=== PATIENT | male | born 1970 | race Caucasian/White ===

== ENCOUNTER 2017-11-29 18:04 | Emergency (ER) | payer OTHER ==
[~2017-11-29] VITALS: Ht 180.3 cm; Wt 77.6 kg
[2017-11-29 18:08] VITALS: BP 116/74
--- NOTE | 2017-11-29 18:44 | ED ANIMAL BITE/WOUND CHECK ---
History of Present Illness General Chief Complaint: General Adult Stated Complaint: 2ND RABIES SHOT Source: patient, old records Exam Limitations: no limitations Vital Signs & Intake/Output Vital Signs & Intake/Output Vital Signs Date Time Temp Pulse Resp B/P B/P Pulse O2 O2 Flow FiO2 Mean Ox Delivery Rate 11/29 1808 97.1 66 15 116/74 97 Room Air Room Air Allergies Coded Allergies: No Known Allergies (11/29/17) Triage Note: PT HERE FOR SECOND RABIES SHOT. Triage Nurses Notes Reviewed? yes Onset: Abrupt Duration: better, gone now Timing: recent history Injury Environment: home Is Injury an Animal Bite? No Appearance of Animal: unknown Severity: mild Severity Numbers: 1 HPI: Patient is a 47-year-old male WHO presents for evaluation after a bat was found in her house LAST WEEK,. The bat was captured and released before could be tested. Patient was not bitten. Patient received initial rabies vaccine and immunoglobin 3 days ago patient returns to the emergency room with with requests a second rabies vaccine. Patient denies any symptoms no reaction to the recent menstruation of the shots Past History Travel History Traveled to [place] past 21 day No Medical History Any Pertinent Medical History? 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 No Review of Systems Review of Systems Constitutional: Reports: no symptoms. EENTM: Reports: no symptoms. Respiratory: Reports: no symptoms. Cardiovascular: Reports: no symptoms. GI: Reports: no symptoms. Genitourinary: Reports: no symptoms. Musculoskeletal: Reports: no symptoms. Skin: Reports: no symptoms. Neurological/Psychological: Reports: no symptoms. Hematologic/Endocrine: Reports: no symptoms. Immunologic/Allergic: Reports: no symptoms. All Other Systems: Reviewed and Negative Physical Exam Physical Exam General Appearance: no apparent distress, alert, comfortable Head: atraumatic Eyes: Bilateral: normal appearance. Ears, Nose, Throat: hearing grossly normal Neck: normal inspection Respiratory: normal breath sounds Extremities: normal range of motion Neurologic/Psych: no motor/sensory deficits, awake, alert, oriented x 3 Skin: intact, normal color Progress Differential Diagnosis: cellulitis Plan of Care: No concerns of adverse reaction to the recent vaccines and shots. Patient was strongly advised to follow-up discharged just the plan and he will comply Departure Departure Disposition: HOME OR SELF CARE Condition: Stable Clinical Impression Primary Impression: Exposure to bat without known bite Referrals: Unknown (PCP/Family) Additional Instructions: As discussed return to the emergency room on December 04 and December 11 for your repeat rabies vaccines. If symptoms worsen return to the emergency room Departure Forms: Customer Survey General Discharge Information
== END 2017-11-29 19:10 ==
LOC: ERH 18:04
DX: Z23 Encounter for immunization (principal)
CPT/HCPCS: 90471; 99281

== ENCOUNTER 2017-12-04 09:55 | Emergency (ER) | payer OTHER ==
[~2017-12-04] VITALS: Ht 181.6 cm; Wt 77.6 kg
[2017-12-04 10:00] VITALS: BP 137/66
--- NOTE | 2017-12-04 10:01 | ED GENERAL ADULT ---
History of Present Illness General Chief Complaint: General Adult Stated Complaint: HERE FOR 3RD RABIES SHOT Source: patient, family, old records Exam Limitations: no limitations Vital Signs & Intake/Output Vital Signs & Intake/Output Vital Signs Date Time Temp Pulse Resp B/P B/P Pulse O2 O2 Flow FiO2 Mean Ox Delivery Rate 12/04 1000 97.9 66 18 137/66 98 Room Air Allergies Coded Allergies: No Known Allergies (11/29/17) Triage Nurses Notes Reviewed? yes HPI: Patient presents for his third rabies shot. No complaints from the first 2. Past History Travel History Traveled to [place] past 21 day No Medical History Any Pertinent Medical History? 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 No Review of Systems Review of Systems Constitutional: Reports: no symptoms. Respiratory: Reports: no symptoms. Cardiovascular: Reports: no symptoms. Musculoskeletal: Reports: no symptoms. Neurological/Psychological: Reports: no symptoms. Immunologic/Allergic: Reports: no symptoms. Physical Exam Physical Exam General Appearance: well developed/nourished, no apparent distress, alert, awake Eyes: Bilateral: PERRL, EOMI. Respiratory: normal breath sounds, chest non-tender, no respiratory distress, lungs clear Cardiovascular: regular rate/rhythm Neurologic/Psych: no motor/sensory deficits, awake, alert, oriented x 3, normal gait, normal mood/affect Core Measures ACS in differential dx? No CVA/TIA Diagnosis: No Sepsis Present: No Sepsis Focused Exam Completed? No Progress Differential Diagnoses I considered the following diagnoses in my evaluation of the patient: [Rabies vaccine] Plan of Care: Current Medications Sig/Meeta Start time Last Medication Dose Stop Time Status Admin Rabies Vaccine 1 SYR ONCE ONE 12/04 1000 UNVr (Rabies (Vaccine) 12/04 1001 Inj (1ML)) Initial ED EKG: none Departure Departure Disposition: HOME OR SELF CARE Condition: Stable Clinical Impression Primary Impression: Rabies exposure Referrals: Unknown (PCP/Family) Additional Instructions: REUTRN ON THE 11TH FOR YOUR LAST SHOT OR SOONER FOR ANY CONCERNS Departure Forms: Customer Survey General Discharge Information Critical Care Note Critical Care Note Critical Care Time: non-applicable
== END 2017-12-04 11:04 ==
LOC: ERH 09:55
DX: Z20.3 Contact with and (suspected) exposure to rabies (principal)
CPT/HCPCS: 90471; 99281

== ENCOUNTER 2017-12-11 07:58 | Emergency (ER) | payer OTHER ==
[2017-12-11 08:04] VITALS: BP 120/70
--- NOTE | 2017-12-11 08:08 | ED ANIMAL BITE/WOUND CHECK ---
History of Present Illness General Chief Complaint: Animal/Insect Bite Stated Complaint: RABIES [place] Source: patient Exam Limitations: no limitations Vital Signs & Intake/Output Vital Signs & Intake/Output Vital Signs Date Time Temp Pulse Resp B/P B/P Pulse O2 O2 Flow FiO2 Mean Ox Delivery Rate 12/11 0804 97.4 57 16 120/70 98 Room Air Allergies Coded Allergies: No Known Allergies (11/29/17) Reconcile Medications No Known Home Medications Triage Note: PT HERE FOR 4TH RABBIES SHOT Triage Nurses Notes Reviewed? yes Onset: Abrupt Duration: week(s): (2) Timing: no prior history Injury Environment: home Is Injury an Animal Bite? No Animal Type: bat HPI: Patient is a 47-year-old male presenting to the emergency department with family members with chief complaint of needing a fourth rabies vaccination. Him along with his family were seen or evaluated here about 2 weeks ago initially for exposure of a by a bat. no one was bit. Patient denies any nausea vomiting fevers or chills chest pain or shortness of breath. Has been doing well. Eating and drinking without difficulty. no complaints. (Clara Bland) Past History Travel History Traveled to [place] past 21 day No Medical History Any Pertinent Medical History? 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 No (Clara Bland) Review of Systems Review of Systems Constitutional: Reports: no symptoms. Comments Review of systems: See HPI, All other systems negative. Constitutional, no chills fever or weight loss HEENT: No visual changes no sore throat no congestion Cardiovascular: No chest pain ,palpitation Skin, no jaundice no rashes Respiratory: No dyspnea cough sputum or hemoptysis GI: No nausea no vomiting Muscle skeletal: no back pain, no neck pain, Neurologic: No numbness no confusion Psych: No stress anxiety or depression,. Heme/endocrine: No bruising no bleeding no polyuria or polydipsia Immunology: No splenectomy or history of AIDS (Clara Bland) Physical Exam Physical Exam General Appearance: well developed/nourished, no apparent distress, alert, awake , comfortable Comments: Well-developed well-nourished person in no acute distress HEENT: Atraumatic, normocephalic Neck: Normal inspection Respiratory: No respiratory distress Extremity: No edema Neuro: Alert oriented x3 Skin: No appreciable rash on exposed skin, skin is warm and dry. Psych: Mood and affect is normal, memory and judgment is normal. (Clara Bland) Progress Differential Diagnosis: need for prophylaxis against rabies Plan of Care: Current Medications Sig/Meeta Start time Last Medication Dose Stop Time Status Admin Rabies Vaccine 1 SYR ONCE ONE 12/11 814 AC (Rabies (Vaccine) 12/11 815 Inj (1ML)) Comments: Patient given IM rabies vaccination. They'll follow-up with the primary care physician. Patient nontoxic, vitals are stable. No complaints. All questions answered. (Clara Bland) Departure Departure Time of Disposition: 811 Disposition: HOME OR SELF CARE Condition: Stable Clinical Impression Primary Impression: Need for prophylactic vaccination against rabies Referrals: Unknown (PCP/Family) Additional Instructions: Follow-up with your primary care physician call to make an appointment in the next 5-7 days. You have completed of rabies vaccination course. Return for any worsening symptoms or concerns. Departure Forms: Customer Survey General Discharge Information Prescriptions: Current Visit Scripts No Known Home Medications (Clara Bland) PA/SECTION HOUSEKEEPER Co-Sign Statement Statement: ED Attending supervision documentation- [] I saw and evaluated the patient. I have also reviewed all the pertinent lab results and diagnostic results. I agree with the findings and the plan of care as documented in the PA's/SECTION HOUSEKEEPER's documentation. [X] I have reviewed the ED Record and agree with the PA's/SECTION HOUSEKEEPER's documentation. [] Additions or exceptions (if any) to the PAs/SECTION HOUSEKEEPER's note and plan are summarized below: [] (Renard Gupta DO
== END 2017-12-11 08:51 ==
LOC: ERH 07:58
DX: Z23 Encounter for immunization (principal)
CPT/HCPCS: 90471; 99281